=== PATIENT | male | born 1985 | race Caucasian/White ===

== ENCOUNTER 2018-02-12 05:18 | Emergency (ER) | payer MEDICAID, SELFPAY ==
[~2018-02-12] VITALS: Ht 180.3 cm; Wt 100.0 kg
[~2018-02-12 05:18] MED LIST: NOCURR
[2018-02-12 05:19] VITALS: BP 145/116
[2018-02-12] MEDS: BUPIVACAINE HCL/PF 0.25% 10 ML VIAL INJ ONE (06:29)
[2018-02-12] MEDS: BACITRACIN 0.9 GM PACKET OINTMENT TP ONE (06:29)
[2018-02-12] MEDS: PERTUSS(ACELL),DIPH,TET VAC/PF 0.5 ML VIAL IM ONE (06:30)
== END 2018-02-12 07:33 | disposition home or self-care (01) ==
LOC: EMS 05:18
DX: S61.216A Laceration without foreign body of right little finger without damage to nail, initial encounter (principal); W45.8XXA Other foreign body or object entering through skin, initial encounter; Y93.89 Activity, other specified; Y92.89 Other specified places as the place of occurrence of the external cause; Y99.8 Other external cause status
CPT/HCPCS: 12001; 90471; 90715; 99283; J3490

== ENCOUNTER 2018-05-11 19:16 | Emergency (ER) | payer SELFPAY ==
[~2018-05-11] VITALS: Ht 180.3 cm; Wt 95.5 kg
[2018-05-11 23:01] VITALS: BP 132/77
== END 2018-05-11 23:06 | disposition home or self-care (01) ==
LOC: EMS 19:17
DX: L02.31 Cutaneous abscess of buttock (principal)